=== PATIENT | female | born 1990 | race Two or more races ===

== ENCOUNTER 2024-05-25 08:03 | Emergency (ER) | payer BC ==
[~2024-05-25] VITALS: Ht 160 cm; Wt 61.2 kg
[2024-05-25 08:11] VITALS: BP 141/76; TEMP 99
[2024-05-25 08:47] VITALS: O2SAT 99
== END 2024-05-25 08:48 | disposition home or self-care (01) ==
LOC: ER 08:03
DX: J06.9 Acute upper respiratory infection, unspecified (principal)